=== PATIENT | female | born 1995 | race Caucasian/White ===

== ENCOUNTER 2016-06-18 13:09 | Inpatient (IN) | payer OTHER | END 2016-07-16 11:30 | disposition home or self-care (01) | DRG 895 | DX: F15.20 Other stimulant dependence, uncomplicated (principal); F13.20 Sedative, hypnotic or anxiolytic dependence, uncomplicated; R51 Headache; Z63.72 Alcoholism and drug addiction in family; F17.210 Nicotine dependence, cigarettes, uncomplicated; Z72.89 Other problems related to lifestyle; Z56.0 Unemployment, unspecified; Z65.3 Problems related to other legal circumstances ==